=== PATIENT | male | born 1955 | race Caucasian/White ===

== ENCOUNTER 2017-04-05 05:36 | Outpatient (CLI) | payer BC ==
[~2017-04-05] VITALS: Ht 177.8 cm; Wt 88.5 kg
[~2017-04-05 05:36] MED LIST: ENAL20TA PO; OMEG-12 PO; VITAMINES PO
[2017-04-05] MEDS ORDERED: MULT-593 PO (10:35)
[2017-04-05] MEDS ORDERED: AMLO5TAB4 PO (10:35)
[2017-04-09] MEDS ORDERED: PANT40TA2 PO (09:39)
== END 2017-04-05 10:45 ==
LOC: PREOP 05:36
PROVIDERS: ATTEND Surgery
DX: Z01.818 Encounter for other preprocedural examination (principal); K21.9 Gastro-esophageal reflux disease without esophagitis; Z86.010 Personal history of colon polyps

== ENCOUNTER → 2017-04-09 | Day surgery (SDC) | payer BC ==
[~2017-04-09] VITALS: Ht 177.8 cm; Wt 88.5 kg
[~2017-04-09] MED LIST changes: +AMLO5TAB4 PO; +HURRICAINE EXT TUBE (BENZOCAINE) ONE; +HURRICAINE EXT TUBE (BENZOCAINE) XX PRN; +LACTATED RINGERS 1,000 ML IV STA; +MIDAZOLAM 2 MG/2 ML (VERSED) VIAL ONE; +MULT-593 PO; +PANT40TA2 PO; +proPOfol 200 MG/20 ML (DIPRIVAN) VIAL IV ONE
[2017-04-09 08:19] VITALS: BP 136/72
--- NOTE | 2017-04-09 08:56 | Progress Note-Pre Operative ---
Pre-Operative Progress Note H&P Reviewed The H&P was reviewed, patient examined and no changes noted. Date Seen by Provider: Apr 09, 2017 Time Seen by Provider: 08:56 Date H&P Reviewed: Apr 09, 2017 Time H&P Reviewed: 08:56 Pre-Operative Diagnosis: gerd, history of polyps ALENA SUGGS DO Apr 09, 2017 8:56 am
--- NOTE | 2017-04-09 09:36 | Progress Note-Post Operative ---
Post-Operative Progess Note Surgeon (s)/House Detective (s) Surgeon ALENA SUGGS DO House Detective: na Pre-Operative Diagnosis gerd, history of polyps Post-Operative Diagnosis gastritis, small gastric polyps, small hiatal hernia Procedure & Operative Findings Date of Procedure 04/09/17 Procedure Performed/Findings egd with biopsies, colonoscopy Anesthesia Type per ladies underwear operator Estimated Blood Loss Estimated blood loss (mL): none Specimens/Packing Specimens Removed antrum, body, ge junction ALENA SUGGS DO Apr 09, 2017 09:36
--- NOTE | 2017-04-09 09:43 | Discharge Inst-Simple/Standard ---
Discharge Inst-Standard Discharge Medications New, Converted or Re-Newed RX: Transmitted to Pharmacy Patient Instructions/Follow Up Plan of Care/Instructions/FU: Follow up with Dr. Beard in 2-3 weeks Take medication as directed. Repeat colonscopy in 5 years. Activity as Tolerated: Yes Discharge Diet: No Restrictions GILL TAYLOR APRN Apr 09, 2017 09:43
[2017-04-09 09:45] VITALS: BP 95/63
[2017-04-09 10:15] VITALS: BP 104/70
[2017-04-09 11:09] VITALS: BP 104/70
--- NOTE | 2017-04-09 11:28 | OPERATIVE REPORT ---
PROCEDURE PHYSICIAN: ALENA SUGGS DATE OF PROCEDURE: 04/09/2017 PREOPERATIVE DIAGNOSES: 1. GERD. 2. History of colon polyps. POSTOPERATIVE DIAGNOSES: 1. Gastritis. 2. Small gastric polyps. 3. Small hiatal hernia. 4. Normal colon. PROCEDURE: EGD with biopsies. Colonoscopy. SURGEON: Chirag. ANESTHESIA: Per GLOBAL SOURCING MANAGER. ESTIMATED BLOOD LOSS: None. COMPLICATIONS: None. INDICATIONS: The patient is a 61-year-old male with some gastroesophageal reflux disease symptoms. He also has history of colon polyps. He understands the risks and benefits of the procedures and wished to proceed with the procedures. Consent was signed on the chart. PROCEDURE: The patient was taken to the endoscopy suite, placed in left lateral recumbent position. Timeout was performed. The scope was then inserted in the mouth, down the esophagus, stomach and into the duodenum. There were no polyps, masses or ulcerations within the duodenum. The scope was slowly retracted back into the stomach which was further insufflated. Some erythematous changes present. Some small benign appearing polyps were present with some surrounding inflammation. Biopsy of the antrum was obtained. Biopsy of one of the small polyps was obtained. The scope was retroflexed noting a small hiatal hernia. The scope was returned to its normal position and slowly withdrawn back to the distal esophagus. At the GE junction, there were some slight erythematous changes. Biopsy was obtained. The scope was then slowly retracted back noting no other pathology. COLONOSCOPY: Digital rectal exam was performed. There was a small thrombosed hemorrhoid present. There were no other polyps, masses or ulcerations. The scope was inserted in the rectum and advanced all of the way to the cecum with minimal difficulty. Prep was adequate. The scope was then slowly retracted back. There were no polyps, masses, ulcerations within the cecum, ascending, transverse, descending and sigmoid colon. The scope was also retroflexed in the rectum noting no other pathology. The scope returned its normal position and slowly withdrawn until completely removed. RECOMMENDATIONS: The patient will need repeat colonoscopy in 5 years due to history of colon polyps. If he has any problems prior to that, he should be reevaluated at that time. The patient will also be started on Protonix 40 mg daily and follow-up on biopsies in approximately 2 weeks to discuss how his symptoms and pathology results are. Job ID: [id number] Dictated Date: 04/09/2017 09:39:27 Clinical Engineer Date: 04/09/2017 11:22:11 / [place]
== END | disposition home or self-care (01) ==
LOC: ENDO 07:54
PROVIDERS: ATTEND Surgery
DX: Z12.11 Encounter for screening for malignant neoplasm of colon (principal); Z86.010 Personal history of colon polyps; K21.9 Gastro-esophageal reflux disease without esophagitis; K29.70 Gastritis, unspecified, without bleeding; K44.9 Diaphragmatic hernia without obstruction or gangrene; I10 Essential (primary) hypertension; E78.1 Pure hyperglyceridemia; Z79.899 Other long term (current) drug therapy; Z87.19 Personal history of other diseases of the digestive system
CPT/HCPCS: 88305

== ENCOUNTER → 2019-07-01 | Outpatient (CLI) | payer BC ==
[~2019-07-01] VITALS: Ht 178 cm; Wt 93.0 kg
[~2019-07-01] MED LIST changes: +CATHETER FLUSH 10 ML SYR IV PRN; -HURRICAINE EXT TUBE (BENZOCAINE) ONE; -HURRICAINE EXT TUBE (BENZOCAINE) XX PRN; -LACTATED RINGERS 1,000 ML IV STA; -MIDAZOLAM 2 MG/2 ML (VERSED) VIAL ONE; -proPOfol 200 MG/20 ML (DIPRIVAN) VIAL IV ONE
[2019-07-01 13:11] VITALS: BP 135/85
[2019-07-01 13:22] VITALS: BP 199/95
[2019-07-01 13:26] VITALS: BP 162/98
--- NOTE | 2019-07-02 08:18 | STRESS TEST ---
DATE OF SERVICE: 07/01/2019 EXERCISE MYOVIEW STRESS TEST REPORT REFERRING PHYSICIAN: Dr. Chen. Baseline heart rate is 70. Baseline blood pressure 135/85. Baseline EKG is sinus rhythm with right bundle branch block. In summary, the patient was injected with 10.35 mCi of technetium-99 Myoview and the resting images were obtained. Then, the patient started exercising with a baseline heart rate, blood pressure and EKG mentioned above. The patient was able to exercise for a total of 9 minutes on standard Dennis protocol. With peak exercise level, EKG was showing nondiagnostic changes. During recovery, heart rate and blood pressure returned to baseline, EKG returned to baseline. The resting and stress images were reviewed and compared in the short axis, horizontal long axis, and vertical long axis views. Review of the images showed an extracardiac attenuation affecting the quality of the images. Overall, there was no significant ischemia or infarction noted. SSS is 0. TID value 0.97. On the gated images, the left ventricle appeared to be in normal size with normal contractility. Calculated ejection fraction 60%. CONCLUSION: 1. Good exercise tolerance, a total of 9 minutes on standard Dennis protocol, total of 10.3 METS achieving 95% of maximum expected heart rate. 2. Severe hypertensive response to exercise with peak blood pressure 213/90 returned to baseline during recovery. 3. Extracardiac attenuation with no significant ischemia or infarction on SPECT images. 4. Normal left ventricular size with normal contractility. Calculated ejection fraction 60%. 5. Baseline right bundle branch block with nondiagnostic EKG changes with exercise returned to baseline during recovery. Job ID: [id number] DocumentID: [id number] Dictated Date: 07/02/2019 06:50:29 Lowerator Operator Date: 07/02/2019 08:17:40 Dictated By: DALIA BURNETT MD
== END ==
LOC: CARD 11:58
PROVIDERS: ATTEND Physician Assistant
DX: I10 Essential (primary) hypertension (principal); E78.2 Mixed hyperlipidemia
CPT/HCPCS: 78452; 93017; 93306

== ENCOUNTER → 2021-03-17 | Outpatient (CLI) | payer MEDICARE, OTHER ==
[~2021-03-17] MED LIST changes: -CATHETER FLUSH 10 ML SYR IV PRN
--- NOTE | 2021-03-17 12:39 | Diagnostic Imaging Report ---
INDICATION: Neck pain. Recent trauma to the head. COMPARISON: None FINDINGS: Frontal, lateral, open-mouth, and swimmer's views of the cervical spine were obtained. Cervical spine is seen down to the C7-T1 level on the swimmer's view. Evaluation of static alignment shows slight grade 1 anterolisthesis at C3-C4 and C4-C5. There is however no evidence of jumped facets. Open-mouth view shows normal C1-C2 alignment. Vertebral body heights are maintained. There is no evidence of acute fracture. There are multiple prominent anterior bridging osteophytes. There is also moderate intervertebral disc height loss at the C6-C7 level and mild intervertebral disc height loss at C5-C6. Posterior endplate osteophytes are also present at these levels. Surrounding soft tissue structures are unremarkable. Included portions of the lung apices are clear. IMPRESSION: 1. No radiographic evidence of acute fracture or dislocation in the cervical spine. 2. Multilevel degenerative changes, greatest at C6-C7. Dictated by: Dictated on workstation # [id number]
== END ==
LOC: RAD 11:05
PROVIDERS: ATTEND Family Medicine
DX: M47.812 Spondylosis without myelopathy or radiculopathy, cervical region (principal)
CPT/HCPCS: 72040

== ENCOUNTER → 2021-06-14 | Outpatient (CLI) | payer MEDICARE, OTHER | LOC: CARD 12:54 | PROVIDERS: ATTEND Internal Medicine Cardiovascular Disease | DX: I35.1 Nonrheumatic aortic (valve) insufficiency (principal); I10 Essential (primary) hypertension; I25.10 Atherosclerotic heart disease of native coronary artery without angina pectoris | CPT/HCPCS: 93306 ==

== ENCOUNTER 2022-06-13 05:34 | Outpatient (CLI) | payer MEDICARE, OTHER ==
[~2022-06-13] VITALS: Ht 177.8 cm; Wt 89.0 kg
[2022-06-13] MEDS ORDERED: ESOM20CA37 PO (08:32)
[2022-06-13] MEDS ORDERED: ROSU10TA28 PO (08:33)
== END 2022-06-13 08:47 | disposition home or self-care (01) ==
LOC: PREOP 05:34
PROVIDERS: ATTEND Surgery
DX: Z01.818 Encounter for other preprocedural examination (principal)

== ENCOUNTER 2022-07-11 09:15 | Day surgery (SDC) | payer MEDICARE, OTHER ==
--- NOTE | 2022-07-05 07:00 | HISTORY AND PHYSICAL ---
DATE OF SERVICE: HISTORY AND PHYSICAL ATTENDING PHYSICIAN: Dr. Abad Hall. HISTORY OF PRESENT ILLNESS: The patient is a 67-year-old male who was referred over to us for a screening colonoscopy. He reports his last colonoscopy was 5 years ago. He does report a history of polyps in the past; however, these were benign. He denies any family history of any colon cancer as well as no blood in the stool. He also denies any diarrhea or constipation as well as no abdominal pain. He does report episodes of reflux, but denies any nausea, vomiting as well as no hematemesis or any coffee ground emesis. He reports he does take medication for reflux; however, does not take this every day. PAST MEDICAL HISTORY: Gastroesophageal reflux disease, hypertension, hypercholesterolemia. PAST SURGICAL HISTORY: Removal of intestinal polyp at the age of 5. ALLERGIES: PENICILLIN. MEDICATIONS: Amlodipine 5 mg daily, enalapril 20 mg daily, esomeprazole 20 mg daily, rosuvastatin 10 mg daily. SOCIAL HISTORY: Negative for tobacco smoke, social for alcohol. FAMILY HISTORY: Father, hypertension. Mother, hypertension. VITAL SIGNS: Blood pressure is 161/88. Current weight is 196.1 at 5 feet 10 inches. REVIEW OF SYSTEMS: Well-nourished male in no acute distress. He is not experiencing any shortness of breath or difficulty breathing. No chest pain, palpitations or diaphoresis. No nausea, vomiting or abdominal pain. No diarrhea or constipation. No red blood per rectum. No dark tarry stools. No fever or chills. No recent inadvertent weight loss. He does report episodes of reflux. All other review of systems negative. PHYSICAL EXAMINATION: CHEST: Clear. Good breath sounds bilaterally. HEART: Regular, no murmurs. EXTREMITIES: No lower extremity edema. Negative Homans sign. HEENT: No scleral icterus. NECK: No cervical lymphadenopathy. ABDOMEN: Soft, nontender, nondistended. SKIN: Warm, dry and pink. NEUROLOGIC: Awake, alert and oriented x3. SKIN: Warm, dry and pink. ASSESSMENT AND PLAN: A 67-year-old male with a history of colon polyps as well as symptomatic gastroesophageal reflux disease. At this time, we will proceed with scheduling him for a screening colonoscopy as well as an EGD with biopsies as appropriate. CC: Dr. Abad Hall - requested, unable to deliver. Job ID: [id number] DocumentID: [id number] Dictated Date: 07/04/2022 15:01:50 Intake Assessor Date: 07/04/2022 15:18:43 Dictated By: HEAVEN PRICE APRN
[~2022-07-11] VITALS: Ht 177.8 cm; Wt 89.0 kg
[~2022-07-11 09:15] MED LIST changes: +ESOM20CA37 PO; +ROSU10TA28 PO
[2022-07-11] MEDS ORDERED: LACTATED RINGERS 1,000 ML IV STA (09:29)
[2022-07-11 09:30] VITALS: BP 139/100
[2022-07-11] MEDS ORDERED: LIDOCAINE JELLY 2% 6 ML SYRINGE MM PRN (09:30)
[2022-07-11] MEDS ORDERED: HURRICAINE EXT TUBE (BENZOCAINE) XX PRN (09:30)
[2022-07-11] MEDS ORDERED: PROPOFOL INJECTION 50 ML IV ONE (10:16)
--- NOTE | 2022-07-11 10:16 | Progress Note-Pre Operative ---
Pre-Operative Progress Note Date of Available H&P: Jul 11, 2022 Date H&P Reviewed: Jul 11, 2022 Time H&P Reviewed: 10:00 History & Physical: No changes noted Pre-Operative Diagnosis: GERD, screening GOLD MANCIA MD Jul 11, 2022 10:16
--- NOTE | 2022-07-11 10:17 | Discharge Inst-Surgical ---
D/C Lap Instructions-BLANCHE Follow Up Activity as tolerated High Fiber Diet 25g or more per day Avoid Alcohol, Caffeine, Spicy [place] and Acid foods. Drink 64 fluid oz or more of fluids per day. Symptoms to Report: Fever over 101 degree F, Nausea/Vomiting If any problems/questions: Contact your physician or go to Emergency Room GOLD MANCIA MD Jul 11, 2022 10:17
[2022-07-11] MEDS ORDERED: ONDANSETRON 4 MG (ZOFRAN) ORAL DISSOLVE TAB PO PRN (10:30)
[2022-07-11] MEDS ORDERED: ONDANSETRON 4 MG/2 ML (SDV) Z0FRAN IVP PRN (10:30)
[2022-07-11 10:56] VITALS: BP 96/57
[2022-07-11 11:01] VITALS: BP 121/74
[2022-07-11 11:05] VITALS: BP 121/74
--- NOTE | 2022-07-11 11:12 | Progress Note-Post Operative ---
Post-Operative Progess Note Surgeon (s)/Work Manager (s) Surgeon GOLD MANCIA MD Work Manager: none Pre-Operative Diagnosis GERD, screening Post-Operative Diagnosis reflux esophagitis(grade C), small-mod HH(2.5cm), moderate gastritis. normal colon and rectum. Procedure & Operative Findings Date of Procedure 07/11/22 Procedure Performed/Findings EGD with bx. colonoscopy. Anesthesia Type mac Estimated Blood Loss Estimated blood loss (mL): minimal Specimens/Packing Specimens Removed ge jxn, antrum GOLD MANCIA MD Jul 11, 2022 11:12
[2022-07-11 11:20] VITALS: BP 121/74
--- NOTE | 2022-07-11 11:59 | Anesthesia-General Post-Op ---
MAC Patient Condition Mental Status/LOC: Same as Preop Cardiovascular: Satisfactory Nausea/Vomiting: Absent Respiratory: Satisfactory Pain: Controlled Complications: Absent Post Op Complications Complications None Follow Up Care/Instructions Patient Instructions None needed. Anesthesiology Discharge Order Discharge Order Patient was doing well after the procedure with no complaints, stable vital signs, no apparent adverse anesthesia problems. No complications reported per nursing. HEATHER JOHN DO Jul 11, 2022 11:59
--- NOTE | 2022-07-11 17:30 | OPERATIVE REPORT ---
DATE OF SERVICE: 07/11/2022 ATTENDING PRIMARY CARE PHYSICIAN: Dr. Abad Hall. PREOPERATIVE DIAGNOSES: Gastroesophageal reflux disease, screening colonoscopy. POSTOPERATIVE DIAGNOSES: Reflux esophagitis, [place] grade C, moderate size hiatal hernia approximately 2.5 cm in size, moderate gastritis, normal colon and rectum. PROCEDURE: EGD with biopsy, colonoscopy. SURGEON: Gold Mancia MD. ANESTHESIA: Monitored anesthesia care. ESTIMATED BLOOD LOSS: Minimal. FINDINGS: Reflux esophagitis, [place] grade C, moderate size hiatal hernia approximately 2.5 cm in size, moderate gastritis, normal colon and rectum. DISPOSITION: The patient tolerated the procedure well. INDICATIONS: The patient is a 67-year-old male referred over to us for screening colonoscopy. His last one was approximately five years ago and does report a history of polyps, which were biopsied and found to be benign. He does not report any family history of colon cancer. He also states no major issues with diarrhea nor constipation as well as no red blood per rectum nor any dark tarry stools. He also has a history of gastroesophageal reflux disease and states that this has worsened over the years. He is on Nexium [id number]; however, does only takes this on an as needed basis. DESCRIPTION OF PROCEDURE: The patient was brought to the endoscopy suite, laid in left lateral decubitus position. After adequate IV pain and sedative medications and monitored anesthesia care, the mouthpiece was applied. The endoscope was placed in the mouth, visualizing the pharynx and hypopharyngeal region. Vocal cords, epiglottis and vallecula identified and appeared to be normal. The endoscope was then gently intubated at the esophageal opening and esophagus insufflated. The endoscope was then advanced through the first, second and third portion of the esophagus at the level of the GE junction, reflux esophagitis, [place] grade C identified. No ulcers or strictures identified in this region and a biopsy was taken with forceps with visualization of good hemostasis. The endoscope was then advanced in the stomach and endoscope retroflexed, visualizing a small to moderate size hiatal hernia approximately 2.5 cm in size. There was a moderate severity gastritis. No formal ulcerations, polyps, or any neoplasms. A biopsy was taken of the antrum to rule out H. pylori with visualization of good hemostasis. The endoscope was then advanced to the pylorus and the first and second portion of the duodenum, which appeared normal. The endoscope was then slowly withdrawn while taking a second look and suctioning of residual air with no additional findings. A digital rectal examination was performed. No significant hemorrhoids identified. Normal sphincter tone was felt and there were no palpable masses. Prostate gland was palpable and appeared normal. The endoscope was then intubated to the anus and rectum gently insufflated. The endoscope was then advanced to the valves of [place] of the rectum with no polyps or any neoplasms identified. Through the sigmoid colon, no diverticulosis identified. The endoscope was then advanced through the remainder of the descending, transverse and ascending colon to the cecum, which were normal. No polyps or any neoplasms identified. The endoscope was then slowly withdrawn while taking a second look and suctioning of residual air with no additional findings. The patient tolerated the procedure well. We will recommend the necessary lifestyle and dietary accommodation including avoidance of caffeinated beverages, spicy, greasy and acidic foods as well as small and more frequent meals, avoidance of eating at night as well as head elevation while lying supine. We will also recommend that he take his Nexium on a daily basis. We will also recommend a high-fiber diet with a fiber supplement, which should equal or exceed 30 grams daily as well as significant amounts of water to promote soft consistency stools on a daily basis. If he is asymptomatic, he does not need another colonoscopy for another 10 years. Job ID: [id number] DocumentID: [id number] Dictated Date: 07/11/2022 10:57:51 Director Nurses' Registry Date: 07/11/2022 17:29:47 Dictated By: GOLD MANCIA MD MTDD
== END 2022-07-11 11:37 | disposition home or self-care (01) ==
LOC: ENDO 09:15
PROVIDERS: ATTEND Surgery
DX: Z12.11 Encounter for screening for malignant neoplasm of colon (principal); K21.00 Gastro-esophageal reflux disease with esophagitis, without bleeding; K44.9 Diaphragmatic hernia without obstruction or gangrene; K29.70 Gastritis, unspecified, without bleeding; Z86.010 Personal history of colon polyps
CPT/HCPCS: 43239; G0105

== ENCOUNTER → 2023-01-02 | Outpatient (CLI) | payer MEDICARE, OTHER ==
[~2023-01-02] MED LIST changes: +CATHETER FLUSH 10 ML SYR IVP PRN
[2023-01-02 09:08] VITALS: BP 149/95
[2023-01-02 09:10] VITALS: BP 165/91
[2023-01-02 09:15] VITALS: BP 209/90
--- NOTE | 2023-01-02 15:09 | Cardiology Stress Test Report ---
Stress Test Report Date of Procedure/Referring: Date of Procedure: Jan 02, 2023 PCP Sarmad Chen MD Admitting Physician Admitting Physician: Attending Physician: Martine De Los Santos MD Indications: HTN Baseline Heart Rate: 75 Baseline Blood Pressure: Blood Pressure Systolic: 209 Blood Pressure Diastolic: 90 Vital Signs Date Time Temp Pulse Resp B/P (MAP) Pulse Ox O2 Delivery O2 Flow Rate FiO2 01/02/23 09:08 100 149/95 (113) 01/02/23 09:15 20 Baseline Vital Signs Vital Signs Date Time Temp Pulse Resp B/P (MAP) Pulse Ox O2 Delivery O2 Flow Rate FiO2 01/02/23 09:08 100 149/95 (113) 01/02/23 09:15 20 Baseline EKG: Baseline EKG: NSR Summary: After explaining the procedure and details to the patient, he signed the consent and was brought to the stress nuclear laboratory. Patient exercised on standard Dennis protocol, EKG, heart rate and blood pressure were monitored continuously, resting and stress doses of radio tracer were injected, imaging was acquired and reviewed in the short axis, horizontal long axis and vertical long axis views Patient was able to exercise for a total of 8 minutes on Dennis protocol, METs 9.7 Maximum heart rate 135 Maximum blood pressure 215/96 Stress EKG, Minimal nondiagnostic changes Recovery EKG, Return to baseline TID: 0.98 SSS: 0 SDS: 0 EF: 53 Conclusion: Good exercise tolerance for a total of 8 minutes on standard Dennis protocol, 9.7 METS achieving 88% of maximal expected heart rate Appropriate heart rate response to exercise with hypertensive response to exercise with peak blood pressure 215/96 return to baseline during recovery Baseline right bundle branch block persisted during test No significant ischemia or infarction noted on SPECT images Normal left ventricular size, ejection fraction 53% Copy Copies To 1: LOLA GOVEA MD, BASHAR J MD Jan 02, 2023 15:09
== END ==
LOC: CARD 06:56
PROVIDERS: ATTEND Internal Medicine Cardiovascular Disease
DX: I10 Essential (primary) hypertension (principal); I45.19 Other right bundle-branch block
CPT/HCPCS: 78452; 93017; A9502